=== PATIENT | female | born 1950 | race Caucasian/White ===

== ENCOUNTER 2016-06-20 09:14 | Emergency (ER) | payer MEDICARE, BC ==
[2016-06-20] MEDS ORDERED: MAG HYDROX/ALUMINUM HYD/SIMETH 30 ML UDC PO ONE (09:37)
[2016-06-20] MEDS ORDERED: BELLADONNA ALKALOIDS/PHENOBARB 60 ML BTL PO ONE (09:37)
[2016-06-20] MEDS ORDERED: LIDOCAINE HCL 20 ML UDC MM ONE (09:37)
--- NOTE | 2016-06-20 09:37 | ERNOTE ---
Chest Pain/Cardiac HPI Date of Service: 06/20/16 Chief Complaint: Chest Pain Time Seen by Provider: 06/20/16 09:30 Source: patient Immunizations: IMMUNIZATION HX Immunizations Up to Date Yes History of Influenza Vaccine No Hx Pneumococcal Vaccination No Allergies/Adverse Reactions: Allergies No Known Allergies Allergy (Unverified 09/06/12 14:50) Home Medications: HOME MEDICATIONS Aspirin [Aspirin Enteric Coated] 81 mg PO DAILY 12/11/12 [Last Taken Unknown] Olmesartan Medoxomil [Benicar] 20 mg PO DAILY 12/11/12 [Last Taken Unknown] Famotidine [Pepcid] 40 mg PO HS #14 tab 06/20/16 [Last Taken Unknown] Narrative: Pt has been having an anterior chest pain for the past 2 days. Timing: constant Severity/Quality: moderate, burning Location: central Chest Pain Radiation: no radiation Activities at Onset: none Associated Symptoms: Present: denies symptoms Prior Chest Pain/Cardiac Workup: Reports: non-cardiac Review of Systems - Review of Systems Constitutional: Present: See HPI EYE: Present: no symptoms reported ENT: Present: no symptoms reported Respiratory: Present: no symptoms reported Cardiology: Present: See HPI Gastrointestinal/Abdominal: Present: no symptoms reported Genitourinary: Present: no symptoms reported Musculoskeletal: Present: no symptoms reported Skin: Present: no symptoms reported Neurological: Present: no symptoms reported Endocrine: Present: no symptoms reported Hematologic/Lymphatic: Present: no symptoms reported Psych: Present: no symptoms reported - Patient's Past Medical History Patient History - Medical: No pertinent hx, GERD Patient History - Cardiac/Respiratory: Hypertension Patient History - Cancer: No Hx of Cancer Patient History - Surgical Procedures: Cholecystectomy Patient History - Other: None - Social History Living Situations: home Abuse History: No History of abuse Psych History: No pertinent hx Smoking Status: Never smoker Alcohol Use: none Drug Use: none - Immunizations Immunizations Up to Date: Yes Hx Pneumococcal Vaccination: No History of Influenza Vaccine: No Physical Exam - Physical Exam General Appearance: Present: wd/wn, alert, moderate distress Eye Exam: Normal inspection: bilateral, PERRL: bilateral Ears, Nose, Throat: Present: normal ENT inspection, hearing grossly normal, normal pharynx Neck: Present: normal inspection, nontender Respiratory: Present: no respiratory distress, normal breath sounds, no accessory muscle use, chest nontender, lungs clear Cardiovascular/Chest: Present: no murmur, normal peripheral pulses, tachycardia Gastrointestinal/Abdominal: Present: normal bowel sounds, nondistended, soft, no organomegaly, tenderness - high epigastric Rectal Exam: Present: deferred Back Exam: Present: normal inspection, normal range of motion Extremity Exam: Present: normal inspection, non-tender, no edema, normal range of motion Neurological Exam: Present: alert, oriented, normal mood/affect Skin Exam: Present: normal color, warm/dry Lymphatic Exam: Present: no adenopathy ED Progress - Results and Orders Patient's Lab Results:: I have reviewed the patient's lab results. - Vital Signs Patient's Vital Signs:: I have reviewed the patient's vital signs. Vital Signs: Vital Signs 06/20/16 09:27 Temperature 36.5 C Pulse Rate 107 H Respiratory 18 Rate Blood Pressure 155/94 O2 Sat by Pulse 98 Oximetry - X-Ray X-Ray #1 X-Ray: chest - Progress/Reassessment Chief Complaint: Chest Pain Progress:: Improved - Transfer of Care Expected Disposition: Discharge Plan - Plan Plan: Pt tried Omeprazole at an earlier time, but stopped taking it because it upset her stomach. We will try 2 weeks of Pepcid and she will report back to Dr. Mix about how she is doing. Departure - Departure Clinical Impression: GERD (gastroesophageal reflux disease) Qualifiers: Esophagitis presence: with esophagitis Qualified Code(s): K21.0 - Gastro- esophageal reflux disease with esophagitis Disposition: Home self-care Instructions: Indigestion, [id number], Gastroesophageal Reflux Disease, Adult , [id number] Referrals: Katty Mix MD [Primary Care Provider] - Prescriptions: Famotidine [Pepcid] 40 mg PO HS #14 tab
[2016-06-20] MEDS ORDERED: ASPIRIN 81 MG TAB.CHEW PO ONE (09:40)
[2016-06-20] MEDS ORDERED: ASPIRIN 81 MG TAB.CHEW ONE (09:42)
--- OUTSIDE RECORDS SUMMARY | 2016-06-20 09:53 | XMS REPORT | Continuity of Care Document ---
:1950 Author Organization [facility] ([facility]) Address [address] [place] [address] Phone [phone] Care Team Providers Name Role Phone Katty Mix Primary Care Provider [phone] Source Comments This disclosure is being made pursuant to the Care Everywhere program, applicable federal and state laws, and may not contain all informaitonavailable regarding this patient.[facility] ([facility]) Active Allergies and Adverse Reactions No Known Allergies Current Medications Prescription Sig. Disp. Refills Start Date End Date Status olmesartan (BENICAR) 20 mg Take 20 mg by Active tablet mouth daily. aspirin 81 mg tablet Take 81 mg by Active mouth daily. DOCOSAHEXANOIC ACID/EPA Take 600 mg by Active (FISH OIL PO) mouth daily. cyclobenzaprine 10 mg Take 1 Tab by 60 Tab 2 08/23/2012 Active tablet mouth 2 times daily as needed. Indications: MUSCLE SPASM nabumetone 500 mg tablet Take 1 Tab by 180 Tab 1 09/06/2012 Active mouth 2 times daily. Indications: low back pain Active Problems Problem Noted Date Low back pain 08/23/2012 DDD (degenerative disc disease), lumbar 08/23/2012 Social History Tobacco Use Types Packs/Day Years Used Date Never Smoker Smokeless Tobacco: Never Used Last Filed Vital Signs Vital Sign Reading Time Taken Blood Pressure 144/80 08/23/2012 1:40 PM CDT Pulse 91 08/23/2012 1:40 PM CDT Temperature 37 C (98.6 F) 08/23/2012 1:40 PM CDT Respiratory Rate - - Height 1.615 m (5' 3.6") 08/23/2012 1:40 PM CDT Weight 112.057 kg (247 lb 0.7 oz) 08/23/2012 1:40 PM CDT Body Mass Index 42.96 08/23/2012 1:40 PM CDT Oxygen Saturation - - Plan of Care Health Maintenance Due Date Last Done Comments HCV Screening 1950 Hepatitis B Vaccine (1 of 3 - Primary Series) 1950 Tdap Vaccine 1961 Lipid Disorder Screening 1968 Td Vaccine 1968 Cervical Cancer Screening 1980 Mammogram 1990 Colonoscopy 07/23/2000 Zoster Vaccine 2010 Osteoporosis Screening (DXA Bone Density) 07/25/2015 Pneumococcal Vaccine (1 of 2 - PCV13) 07/25/2015 Influenza Vaccine: Seasonal (#1) 11/24/2015 Results from Last 3 Months Not on file
[2016-06-20 09:55] LABS: Hematocrit 43.3 % (37.0-47.0); Hemoglobin 14.7 gm/dL (12.5-16.0); Mean Cell Volume 89.8 fl (78-100); Mean Corpuscular Hemoglobin 30.5 pg (27-31); Mean Corpuscular Hgb Conc 33.9 g/dl (32-36); Mean Platelet Volume 10.8 fl (6.0-9.5); Neutrophil # 11.4 K/mm3 (1.3-6.0); Neutrophil % 88.4 % (42-75.0); Platelet Count 188 K/mm3 (150-450); Red Blood Count 4.82 M/mm3 (4.2-5.4); White Blood Count 12.9 K/mm3 (4.0-10.5)
[2016-06-20 10:14] LABS: ALT 25 U/L (19-67); AST 12 U/L (0-48); Albumin * 3.8 gm/dl (3.4-5.0); Alkaline Phosphatase * 98 U/L (50-170); Anion Gap 15.5 mmol/L (6.8-13.8); BUN/Creatinine Ratio 15.6 (9.0-21.6); Bilirubin, Total 0.8 mg/dL (0.0-1.1); Blood Urea Nitrogen 12 mg/dL (3-23); Ca. Corrected For Albumin 8.9 mg/dL (8.4-10.2); Calcium * 9.1 mg/dL (7.9-10.9); Carbon Dioxide 24.5 mmol/L (24-32.6); Chloride 104 mmol/L (97-106); Glucose * 146 mg/dL (70-110); Magnesium 1.9 mg/dL (1.2-2.8); Sodium 140 mmol/L (132-142); Total Protein 7.4 gm/dL (6.2-8.2); Troponin I Less than 0.017 ng/ml (0.00-0.10)
[2016-06-20 11:50] VITALS: BP 147/88
== END 2016-06-20 11:05 | disposition home or self-care (01) ==
LOC: ER 09:14
DX: K21.0 Gastro-esophageal reflux disease with esophagitis (principal)

== ENCOUNTER 2016-11-30 10:46 | Emergency (ER) | payer MEDICARE, BC ==
--- NOTE | 2016-11-30 11:35 | ERNOTE ---
Back Pain ER HPI Date of Service: 11/30/16 Presenting Symptoms: injury/pain to back, other - abd pain Time Seen by Provider: 11/30/16 11:25 Source: patient Exam Limitations: no limitations Immunizations: IMMUNIZATION HX Immunizations Up to Date Yes History of Influenza Vaccine No Hx Pneumococcal Vaccination No Allergies/Adverse Reactions: Allergies No Known Allergies Allergy (Verified 11/30/16 11:20) Home Medications: HOME MEDICATIONS Aspirin [Aspirin Enteric Coated] 81 mg PO DAILY 12/11/12 [Last Taken Unknown] Famotidine [Pepcid] 40 mg PO HS #14 tab 06/20/16 [Last Taken Unknown] Cyclobenzaprine HCl [Flexeril] 10 mg PO TID PRN #30 tab 11/30/16 [Last Taken Unknown] Lisinopril [Zestril] 40 mg PO DAILY 11/30/16 [Last Taken Unknown] Naproxen [Naprosyn] 500 mg PO BID PRN #60 tab 11/30/16 [Last Taken Unknown] Narrative: Pt. comes in with c/o RUQ pain and R flank pain for a week. Pt. denies any SOB , CP, NVD, fever, recent ilness, alleviating or aggravating factors, but states taht pain is constant without relief. Pt. was seen by [facility] three days ago and labs were not performed but no diagnosis was given at that time. Review of Systems - Review of Systems Constitutional: Present: no symptoms reported. Absent: recent illness, fever, chills, weakness, fatigue, malaise EYE: Present: no symptoms reported ENT: Present: no symptoms reported Respiratory: Present: no symptoms reported. Absent: shortness of breath, cough , wheezing Cardiology: Present: no symptoms reported. Absent: chest pain, palpitations, edema Gastrointestinal/Abdominal: Present: abdominal pain - RUQ. Absent: nausea, vomiting, diarrhea Genitourinary: Present: pain - R flank. Absent: frequency, dysuria, decreased urinary output Musculoskeletal: Present: back pain - R flank Skin: Present: no symptoms reported. Absent: rash, change in color Neurological: Present: no symptoms reported. Absent: headache, dizziness/light- headedness, weakness, numbness All Other Systems: All systems neg except as marked - Patient's Past Medical History Patient History - Medical: GERD Patient History - Cardiac/Respiratory: Hypertension Patient History - Cancer: No Hx of Cancer Patient History - Surgical Procedures: Cholecystectomy Patient History - Other: None LMP (females 10-50): Menopausal - Social History Living Situations: home Abuse History: No History of abuse Psych History: No pertinent hx Smoking Status: Never smoker Alcohol Use: none Drug Use: none - Immunizations Immunizations Up to Date: Yes Hx Pneumococcal Vaccination: No History of Influenza Vaccine: No Physical Exam - Physical Exam General Appearance: Present: wd/wn, alert, no apparent distress Head Exam: Present: normal inspection, no evidence of injury Eye Exam: Normal inspection: bilateral, PERRL: bilateral, EOMI: bilateral Ears, Nose, Throat: Present: normal ENT inspection, normal pharynx Neck: Present: normal inspection, nontender, supple, full range of motion. Absent: lymphadenopathy (R), lymphadenopathy (L) Respiratory: Present: no respiratory distress, normal breath sounds, no accessory muscle use, chest nontender, lungs clear. Absent: crackles, rales, rhonchi, wheezing Cardiovascular/Chest: Present: regular rate, rhythm, no murmur, normal peripheral pulses Gastrointestinal/Abdominal: Present: normal bowel sounds, nondistended, soft, no organomegaly, tenderness - RUQ. 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 Absent: pallor, skin rash ED Progress - Date and Time Seen: Date and Time: 11/30/16 14:01 Discussed results and options and this is likely a muscle spasm so will start on medications and have pt. follow up with PCP tomorrow as we do not have a firm diagnosis at this time. - Results and Orders Patient's Lab Results:: I have reviewed the patient's lab results. - Vital Signs Patient's Vital Signs:: I have reviewed the patient's vital signs. Vital Signs: Vital Signs 11/30/16 11:16 Temperature 36.2 C L Pulse Rate 74 Respiratory 16 Rate Blood Pressure 159/103 O2 Sat by Pulse 96 Oximetry - X-Ray X-Ray #1 X-Ray: abdomen Interpretation: Reviewed by me X-ray Comments: no acute gastrointestinal process. Non obstructive gas pattern - Progress/Reassessment Chief Complaint: Back Pain Progress:: Unchanged Departure Clinical Impression: Muscle spasm - Departure Disposition: Home self-care Condition: Good Instructions: Muscle Cramps and Spasms, [id number] Additional Instructions: Please follow up with Dr Romero tomorrow at 0915. Referrals: Katty Mix MD [Primary Care Provider] - Prescriptions: Cyclobenzaprine HCl [Flexeril] 10 mg PO TID PRN #30 tab PRN Reason: MUSCLE SPASMS Naproxen [Naprosyn] 500 mg PO BID PRN #60 tab PRN Reason: Pain
[2016-11-30 11:46] LABS: Urine Bilirubin Negative (NEGATIVE); Urine Blood Negative /ul (NEGATIVE); Urine Ketone Negative (NEGATIVE); Urine Nitrite Negative (NEGATIVE); Urine Protein Negative (NEGATIVE); Urine Specific Gravity <=1.005 SP.GR. (1.005-1.010); Urine Urobilinogen Normal (NORMAL)
[2016-11-30 11:53] LABS: Hemoglobin 15.2 gm/dL (12.5-16.0); Mean Cell Volume 91.3 fl (78-100); Mean Corpuscular Hemoglobin 30.8 pg (27-31); Mean Corpuscular Hgb Conc 33.8 g/dl (32-36); Mean Platelet Volume 10.6 fl (6.0-9.5); Neutrophil # 6.2 K/mm3 (1.3-6.0); Neutrophil % 73.1 % (42-75.0); Platelet Count 196 K/mm3 (150-450); Red Blood Count 4.93 M/mm3 (4.2-5.4); White Blood Count 8.5 K/mm3 (4.0-10.5)
[2016-11-30 12:02] LABS: Urine Appearance Clear; Urine Bacteria None Seen; Urine Color Yellow; Urine RBC None Seen /hpf (0-5); Urine WBC None Seen /hpf (0-5)
[2016-11-30 12:11] LABS: Albumin * 3.9 gm/dl (3.4-5.0); Anion Gap 14.7 mmol/L (6.8-13.8); BUN/Creatinine Ratio 15.9 (9.0-21.6); Bilirubin, Total 0.5 mg/dL (0.0-1.1); Ca. Corrected For Albumin 8.9 mg/dL (8.4-10.2); Calcium * 9.1 mg/dL (7.9-10.9); Carbon Dioxide 27.3 mmol/L (24-32.6); Total Protein 7.4 gm/dL (6.2-8.2)
[2016-11-30] MEDS ORDERED: LIDOCAINE HCL 20 ML UDC PO ONE (12:58)
[2016-11-30] MEDS ORDERED: SUCRALFATE 1 G/10 ML UDC PO ONE (12:58)
[2016-11-30] MEDS ORDERED: MAG HYDROX/ALUMINUM HYD/SIMETH 30 ML UDC PO ONE (12:58)
[2016-11-30 14:37] VITALS: BP 144/93
== END 2016-11-30 14:10 | disposition home or self-care (01) ==
LOC: ER 10:46
DX: M62.838 Other muscle spasm (principal)